=== PATIENT | female | born 1945 | race Caucasian/White ===

== ENCOUNTER 2022-12-19 14:30 | Inpatient (IN) | payer BC, OTHER ==
[2022-12-19 14:58] VITALS: BMI 25.0
[2022-12-19 16:20] LABS: BASO % 0.4 % (0-2.0); EOS % 3.6 % (0-4.5); HEMATOCRIT 34.7 % (32.4-45.2); HEMOGLOBIN 11.8 GM/dL (10.7-15.3); LYMPH % 15.1 % (8-40); MCH 29.9 pg (25.7-33.7); MCHC 33.9 g/dl (32.0-36.0); MEAN CELL VOLUME 88.3 fl (80-96); MEAN PLT VOLUME 6.8 fl (7.5-11.1); MONO % 8.5 % (3.8-10.2); NEUT % 72.4 % (42.8-82.8); PLATELET COUNT 280 10^3/uL (134-434); RBC 3.93 M/mm3 (3.60-5.2); RDW 14.2 % (11.6-15.6); WHITE BLOOD COUNT 9.1 K/mm3 (4.0-10.0)
[2022-12-19] MEDS ORDERED: AMOX TR/POT CLAV 875MG/125MG TABLETS (FP) PO ONE (17:03)
[2022-12-19 17:09] LABS: ALBUMIN 4.2 g/dl (3.4-5.0); BLOOD UREA NITROGEN 13.7 mg/dL (7-18); CALCIUM 9.2 mg/dL (8.5-10.1)
[2022-12-19 17:13] LABS: CREATININE 0.8 mg/dL (0.55-1.3)
[2022-12-19 17:14] LABS: BILIRUBIN,TOTAL 0.6 mg/dL (0.2-1); TOT PROT 7.9 g/dl (6.4-8.2)
[2022-12-19] MEDS ORDERED: AMOX TR/POT CLAV 875MG/125MG TABLETS (FP) ONE (17:15)
[2022-12-19 17:17] LABS: ERYTHROCYTE SEDIMENTATION RATE 16 mm/hr (0-30)
[2022-12-19] MEDS ORDERED: CLINDAMYCIN IVPB 300 MG in DEXTROSE 5%-WATER - 48 ML IVPB ONE (17:57)
[2022-12-19] MEDS ORDERED: CLINDAMYCIN 600MG PREMIX IVPB 600 MG/50 ML BAG IVPB ONE (18:15)
[2022-12-19] MEDS ORDERED: ACETAMINOPHEN 1000 MG/100 ML BAG IVPB ONE (18:22)
[2022-12-19] MEDS ORDERED: ACETAMINOPHEN INJECTION 100 ML IVPB ONE (20:07)
[2022-12-20] MEDS: CLINDAMYCIN 300 MG PREMIX IVPB 300 MG/50 ML BAG IVPB SCH (03:00)
[2022-12-20] MEDS: glipiZIDE-XL 2.5 MG TAB.ER.24 PO SCH (06:13)
[2022-12-20] MEDS: INSULIN SLIDING SCALE (NOVOLOG) 1 VIAL SQ SCH ×3 (06:14→17:23)
[2022-12-20] MEDS ORDERED: glipiZIDE-XL 2.5 MG TAB.ER.24 PO SCH (07:00)
[2022-12-20] MEDS ORDERED: ACETAMINOPHEN 325 MG TABLET (FP) PO PRN (07:45)
[2022-12-20 09:32] LABS: HEMATOCRIT 33.7 % (32.4-45.2); HEMOGLOBIN 11.7 GM/dL (10.7-15.3); MCH 30.5 pg (25.7-33.7); MCHC 34.6 g/dl (32.0-36.0); MEAN CELL VOLUME 88.1 fl (80-96); MEAN PLT VOLUME 6.8 fl (7.5-11.1); PLATELET COUNT 272 10^3/uL (134-434); RBC 3.83 M/mm3 (3.60-5.2); WHITE BLOOD COUNT 7.5 K/mm3 (4.0-10.0)
[2022-12-20] MEDS ORDERED: AMPICILLIN NA/SULBACTAM NA 1.5 GM in SODIUM CHLORIDE 100 ML IVPB SCH (10:00)
[2022-12-20 10:05] LABS: ALBUMIN 3.7 g/dl (3.4-5.0); CALCIUM 9.1 mg/dL (8.5-10.1)
[2022-12-20 10:06] LABS: MAGNESIUM 2.1 mg/dL (1.8-2.4)
[2022-12-20 10:08] LABS: BLOOD UREA NITROGEN 11.4 mg/dL (7-18); CREATININE 0.9 mg/dL (0.55-1.3)
[2022-12-20 10:10] LABS: PHOSPHOROUS 2.7 mg/dL (2.5-4.9)
[2022-12-20 10:11] LABS: TOT PROT 7.2 g/dl (6.4-8.2)
[2022-12-20] MEDS: AMPICILLIN NA/SULBACTAM NA 3 GM in SODIUM CHLORIDE 100 ML IVPB SCH ×2 (11:33→17:28)
[2022-12-20] MEDS: ENOXAPARIN NA (PORCINE) 40 MG/0.4 ML DISP.SYRIN SQ SCH (11:34)
[2022-12-21] MEDS: INSULIN SLIDING SCALE (NOVOLOG) 1 VIAL SQ SCH ×3 (00:06→11:46)
[2022-12-21] MEDS: CLINDAMYCIN 300 MG PREMIX IVPB 300 MG/50 ML BAG IVPB SCH (01:16)
[2022-12-21] MEDS: AMPICILLIN NA/SULBACTAM NA 3 GM in SODIUM CHLORIDE 100 ML IVPB SCH ×2 (02:52→10:03)
[2022-12-21] MEDS: glipiZIDE-XL 2.5 MG TAB.ER.24 PO SCH (06:33)
[2022-12-21 09:09] LABS: BASO % 0.4 % (0-2.0); EOS % 5.9 % (0-4.5); HEMATOCRIT 34.9 % (32.4-45.2); HEMOGLOBIN 12.1 GM/dL (10.7-15.3); LYMPH % 26.1 % (8-40); MCH 30.3 pg (25.7-33.7); MCHC 34.7 g/dl (32.0-36.0); MEAN CELL VOLUME 87.3 fl (80-96); MEAN PLT VOLUME 6.8 fl (7.5-11.1); MONO % 8.9 % (3.8-10.2); NEUT % 58.7 % (42.8-82.8); PLATELET COUNT 288 10^3/uL (134-434); RDW 13.9 % (11.6-15.6); WHITE BLOOD COUNT 6.8 K/mm3 (4.0-10.0)
[2022-12-21 09:32] LABS: CALCIUM 9.2 mg/dL (8.5-10.1)
[2022-12-21 09:33] LABS: ALBUMIN 3.7 g/dl (3.4-5.0)
[2022-12-21 09:36] LABS: CREATININE 0.8 mg/dL (0.55-1.3)
[2022-12-21 09:37] LABS: BILIRUBIN,TOTAL 0.4 mg/dL (0.2-1); TOT PROT 7.5 g/dl (6.4-8.2)
[2022-12-21 10:03] VITALS: BP 121/70; PULSE 81; RESP 17; TEMP 98.2
[2022-12-21] MEDS: ENOXAPARIN NA (PORCINE) 40 MG/0.4 ML DISP.SYRIN SQ SCH (10:03)
== END 2022-12-21 12:50 | disposition home or self-care (01) | DRG 603 ==
LOC: JER 14:30 → JERBED 18:19 → J7W 22:57
PROVIDERS: ADMIT Internal Medicine
DX: L03.114 Cellulitis of left upper limb (principal); S61.452A Open bite of left hand, initial encounter; W55.01XA Bitten by cat, initial encounter; Y93.9 Activity, unspecified; Y92.89 Other specified places as the place of occurrence of the external cause; Y99.9 Unspecified external cause status; E11.9 Type 2 diabetes mellitus without complications
CPT/HCPCS: 36415; 73110-TC-LT-FY; 73130-TC-LT-FY; 73200-TC-RT; 80053; 82962; 83036; 83735; 84100; 85025; 85027; 85651; 86140; 87040; 87070; 87205; 93005; 93010; 99285-25; C9803-CS; U0003; U0005